=== PATIENT | female | born 1990 | race African-American/Black ===

== ENCOUNTER 2019-08-19 23:33 | Emergency (ER) | payer SELFPAY ==
[~2019-08-19] VITALS: Ht 180.3 cm; Wt 99.8 kg
[2019-08-19 23:38] VITALS: BP 172/103
[2019-08-19 23:58] LABS: BILIRUBIN,URINE NEGATIVE (NEG); CLARITY,URINE CLEAR; COLOR,URINE YELLOW; NITRITE,URINE NEGATIVE (NEG); PROTEIN,URINE NEGATIVE (NEG-TRACE)
[2019-08-20 00:03] LABS: BARBITURATES NEG (NEG); BENZODIAZEPINES NEG (NEG); CANNABINOIDS NEG (NEG); COCAINE NEG (NEG); METHADONE NEG (NEG); OPIATES POS (NEG); PHENCYCLIDINE NEG (NEG)
[2019-08-20 00:04] LABS: AMPHETAMINE/METHAMPHETAMINE NEG (NEG)
[2019-08-20 00:07] LABS: BACTERIA,URINE MOD /HPF (0-FEW); RBC,URINE 0 /HPF (0-2); SQUAMOUS EPITHELIAL CELL,UR MANY /LPF
--- NOTE | 2019-08-20 00:47 | PHYS DOC ---
Past Medical History Past Medical History: No Pertinent History Past Surgical History: No Surgical History Alcohol Use: None Drug Use: None Adult General Chief Complaint Chief Complaint: HOMELESS HPI HPI Patient is a 28 year old female who appears homeless presenting to the ED today complaining of her whole body hurting, patient is not giving any specifics about this pain. She appears to have a bag from [facility] with a sandwich, she has no shoes on, she has 2 pairs of hospital socks that belonged to . She is denying she came from . She reports she was seen at [facility] couple days ago because she was out in the could. She states she occasionally stays with her mother. She will not define who she is living with right now. Review of Systems Review of Systems Constitutional: Reports generalized body pain Denies fever or chills [] Eyes: Denies change in visual acuity, redness, or eye pain [] HENT: Denies nasal congestion or sore throat [] Respiratory: Denies cough or shortness of breath [] Cardiovascular: No additional information not addressed in HPI [] GI: Denies abdominal pain, nausea, vomiting, bloody stools or diarrhea [] : Denies dysuria or hematuria [] Musculoskeletal: Denies back pain or joint pain [] Integument: Denies rash or skin lesions [] Neurologic: Denies headache, focal weakness or sensory changes [] All other systems were reviewed and found to be within normal limits, except as documented in this note. Physical Exam Physical Exam Constitutional: Well developed, well nourished, no acute distress, non-toxic appearance. [] HENT: Normocephalic, atraumatic, bilateral external ears normal, oropharynx moist, no oral exudates, nose normal. [] Eyes: PERRLA, EOMI, conjunctiva normal, no discharge. [] Neck: Normal range of motion, no tenderness, supple, no stridor. [] Cardiovascular:Heart rate regular rhythm, no murmur [] Lungs & Thorax: Bilateral breath sounds clear to auscultation [] Abdomen: Bowel sounds normal, soft, no tenderness, no masses, no pulsatile masses. [] Skin: Warm, dry, no erythema, no rash. [] Back: No tenderness, no CVA tenderness. [] Extremities: No tenderness, no cyanosis, no clubbing, ROM intact, no edema. [] Neurologic: Alert and oriented X 3, normal motor function, normal sensory function, no focal deficits noted. [] Psychologic: Flat affect Current Patient Data Vital Signs Vital Signs Date Time Temp Pulse Resp B/P (MAP) Pulse Ox O2 Delivery O2 Flow Rate FiO2 08/19/19 23:38 97.7 99 12 172/103 (126) 99 Room Air 97.7 Lab Values Laboratory Tests Test 08/19/19 23:34 08/19/19 23:47 Urine Collection Type Unknown Urine Color Yellow Urine Clarity Clear Urine pH 6.0 Urine Specific [place] 1.020 Urine Protein Negative mg/dL (NEG-TRACE) Urine Glucose (UA) Negative mg/dL (NEG) Urine Ketones (Stick) Negative mg/dL (NEG) Urine Blood Negative (NEG) Urine Nitrite Negative (NEG) Urine Bilirubin Negative (NEG) Urine Urobilinogen Dipstick 1.0 mg/dL (0.2 mg/dL) Urine Leukocyte Esterase Negative (NEG) Urine RBC 0 /HPF (0-2) Urine WBC 1-4 /HPF (0-4) Urine Squamous Epithelial Cells Many /LPF Urine Bacteria Mod /HPF (0-FEW) Urine Mucus Slight /LPF Urine Opiates Screen Pos (NEG) Urine Methadone Screen Neg (NEG) Urine Barbiturates Neg (NEG) Urine Phencyclidine Screen Neg (NEG) Urine Amphetamine/Methamphetamine Neg (NEG) Urine Benzodiazepines Screen Neg (NEG) Urine Cocaine Screen Neg (NEG) Urine Cannabinoids Screen Neg (NEG) Urine Ethyl Alcohol Neg (NEG) POC Urine HCG, Qualitative Hcg negative (Negative) EKG EKG [] Radiology/Procedures Radiology/Procedures [] Course & Med Decision Making Course & Med Decision Making Pertinent Labs and Imaging studies reviewed. (See chart for details) This is a homeless 28-year-old female patient presenting to the ED today likely from [facility] complaining of generalized body aches. See history of present illness. Chest x-ray is negative, UA is negative, UDS noted for opiates. Discharged patient. Vitals are stable. Dragon Disclaimer Dragon Disclaimer This electronic medical record was generated, in whole or in part, using a voice recognition dictation system. Departure Departure Impression: Primary Impression: Homeless Additional Impression: Body aches Disposition: HOME, SELF-CARE Condition: STABLE Referrals: NO PCP (PCP) follow up with your doctor in 1-2 weeks Patient Instructions: Musculoskeletal Pain Additional Instructions: You were evaluated in the emergency room, we discharged you to follow-up with your own doctor. You can take [id number] pain relievers as needed. Problem Qualifiers MARTIN BHATTI APRN Aug 20, 2019 00:47
--- NOTE | 2019-08-20 02:20 | RAD ---
Chest PA and lateral: Reason for examination: Chest pain. The heart size is normal. Mediastinum is unremarkable. Lung sorensen are clear. No acute bony abnormalities are seen. Impression: No acute cardiopulmonary disease. Electronically signed by: Magy Magdaleno MD (08/20/2019 2:16 AM) [id number]
== END 2019-08-20 00:56 | disposition home or self-care (01) ==
LOC: ER 23:33
DX: M79.10 Myalgia, unspecified site (principal); Z59.0 Homelessness
CPT/HCPCS: 71046; 80307; 81001; 81025; 99285

== ENCOUNTER 2019-08-20 16:43 | Emergency (ER) | payer SELFPAY ==
[2019-08-20 17:11] VITALS: BP 172/103
[2019-08-20] MEDS ORDERED: ACETAMINOPHEN 500 MG TABLET PO ONE (18:45)
--- NOTE | 2019-08-20 19:02 | PHYS DOC ---
Past Medical History Past Medical History: No Pertinent History Past Surgical History: No Surgical History Alcohol Use: None Drug Use: None Adult General Chief Complaint Chief Complaint: COLD EXPOSURE HPI HPI Patient is a 28 year old homeless female patient who presents to the ED today complaining of cold exposure, patient reports she has been out in the cold for 8 hours. Patient will not give us any further information. She originally gave us the wrong information regarding her name considering she was here yesterday we had to question her several times why her name is not same as what she gave us yesterday. She reports she had to poop and pee in her pants because she could not find a toilet. Review of Systems Review of Systems Constitutional: cold exposure. Denies fever or chills [] Eyes: Denies change in visual acuity, redness, or eye pain [] HENT: Denies nasal congestion or sore throat [] Respiratory: Denies cough or shortness of breath [] Cardiovascular: No additional information not addressed in HPI [] GI: Denies abdominal pain, nausea, vomiting, bloody stools or diarrhea [] : Denies dysuria or hematuria [] Musculoskeletal: Denies back pain or joint pain [] Integument: Denies rash or skin lesions [] Neurologic: Denies headache, focal weakness or sensory changes [] Psych: Homeless All other systems were reviewed and found to be within normal limits, except as documented in this note. Current Medications Current Medications Current Medications Medications (Trade) Dose Ordered Sig/[facility] Start Time Stop Time Status Last Admin Dose Admin Acetaminophen (Tylenol) 500 mg 1X ONCE 08/20/19 18:45 08/20/19 18:46 DC 08/20/19 18:45 500 MG Allergies Allergies Allergies Coded Allergies Type Severity Reaction Last Updated Verified No Known Drug Allergies 08/20/19 No Physical Exam Physical Exam Constitutional: Well developed, well nourished, no acute distress, non-toxic appearance. [] HENT: Normocephalic, atraumatic, bilateral external ears normal, oropharynx moist, no oral exudates, nose normal. [] Eyes: PERRLA, EOMI, conjunctiva normal, no discharge. [] Neck: Normal range of motion, no tenderness, supple, no stridor. [] Cardiovascular:Heart rate regular rhythm, no murmur [] Lungs & Thorax: Bilateral breath sounds clear to auscultation [] Abdomen: Bowel sounds normal, soft, no tenderness, no masses, no pulsatile masses. [] Skin: Warm, dry, no erythema, no rash. [] Back: No tenderness, no CVA tenderness. [] Extremities: No tenderness, no cyanosis, no clubbing, ROM intact, no edema. [] Neurologic: Alert and oriented X 3, normal motor function, normal sensory fu nction, no focal deficits noted. [] Psychologic: Flat affect Current Patient Data Vital Signs Vital Signs Date Time Temp Pulse Resp B/P (MAP) Pulse Ox O2 Delivery O2 Flow Rate FiO2 08/20/19 17:11 98.2 86 20 172/103 (126) 99 Room Air 98.2 EKG EKG [] Radiology/Procedures Radiology/Procedures [] Course & Med Decision Making Course & Med Decision Making Pertinent Labs and Imaging studies reviewed. (See chart for details) This is a 28-year-old female patient presenting to the ED today complaining of cold exposure. Patient is homeless. He was in the ED yesterday after being seen at [facility]. Was discharged yesterday. She states she's been out in the cold for 8 hours. He does report yesterday she [place]. On arrival to the ED patient had stool all over herself. She states she did not have a platelet around her. She was given time to clean up. Temperature 98.2. We gave her food tray. She has no signs of any ybarra bites. She was discharged again with homeless detention hotline information. Dragon Disclaimer Dragon Disclaimer This electronic medical record was generated, in whole or in part, using a voice recognition dictation system. Departure Departure Impression: Primary Impression: Homeless Additional Impression: Cold exposure Disposition: 01 HOME, SELF-CARE Condition: STABLE Referrals: NO PCP (PCP) follow up with your doctor in 1-2 weeks Additional Instructions: Please follow up with your doctor in 1-2 weeks Problem Qualifiers Additional Impression: Cold exposure Encounter type: initial encounter Qualified Codes: T69.9XXA - Effect of reduced temperature, unspecified, initial encounter MARTIN BHATTI APRN Aug 20, 2019 19:02
== END 2019-08-20 19:10 | disposition home or self-care (01) ==
LOC: ER 16:43
DX: T69.9XXA Effect of reduced temperature, unspecified, initial encounter (principal); Z59.0 Homelessness
CPT/HCPCS: 99283